=== PATIENT | female | born 1985 | race Caucasian/White ===

== ENCOUNTER 2019-04-04 09:08 | Day surgery (SDC) | payer MEDICAID ==
[2019-04-04] MEDS ORDERED: SOD CHLORIDE 0.9% 1,000 ML IV (10:00)
[2019-04-04] MEDS ORDERED: CEFAZOLIN 1 GM/50 ML (PMX) 50 ML IVPB (10:00)
[2019-04-04 11:28] LABS: ADD MAN DIFF? NO
[2019-04-04 11:32] LABS: BASOPHILS % 0.6 % (0.0-2.0); EOSINOPHILS # 0.1 10^3/ul (0.0-0.5); EOSINOPHILS % 0.9 % (0.0-7.0); HEMATOCRIT 35.1 % (37.0-47.0); HEMOGLOBIN 11.6 g/dl (12.0-16.0); LYMPHOCYTES # 1.5 10^3/ul (0.8-2.9); LYMPHOCYTES % 22.2 % (15.0-51.0); MEAN CORPUSCULAR HEMOGLOBIN 28.4 pg (29.0-33.0); MEAN PLATELET VOLUME 10.1 fl (7.4-10.4); MONOCYTE # 0.3 10^3/ul (0.3-0.9); MONOCYTES % 4.8 % (0.0-11.0); NEUTROPHIL # 4.9 10^3/ul (1.6-7.5); NEUTROPHILS % 71.2 % (39.0-77.0); PLATELET COUNT 285 10^3/UL (140-415); RED BLOOD COUNT 4.08 10^6/ul (4.20-5.40); RED CELL DISTRIBUTION WIDTH 13.8 % (11.5-14.5)
[2019-04-04 11:32] LABS: WHITE BLOOD COUNT 6.9 10^3/ul (4.8-10.8)
[2019-04-04 11:54] LABS: INR 1.11; PARTIAL THROMBOPLASTIN TIME 30.7 Sec (23.0-35.0); PROTIME 14.4 Sec (11.9-14.9); PT RATIO 1.1
[2019-04-04 12:05] LABS: ALANINE AMINOTRANSFERASE 33 IU/L (13-69); ALBUMIN 4.4 g/dl (3.3-4.9); ALBUMIN/GLOBULIN RATIO 1.15; ALKALINE PHOSPHATASE 107 IU/L (42-121); ANION GAP 9 (5-13); ASPARTATE AMINO TRANSFERASE 30 IU/L (15-46); BILIRUBIN,INDIRECT 0.3 mg/dl (0-1.1); BILIRUBIN,TOTAL 0.3 mg/dl (0.2-1.3); BLOOD UREA NITROGEN 13 mg/dl (7-20); CALCIUM 9.2 mg/dl (8.4-10.2); CARBON DIOXIDE 23 mmol/L (21-31); CHLORIDE 108 mmol/L (97-110); CREATININE 0.55 mg/dl (0.44-1.00); Estimated GFR > 60 mL/min (>60); GLUCOSE 101 mg/dl (70-220); SODIUM 140 mmol/L (135-144); TOTAL PROTEIN 8.2 g/dl (6.1-8.1)
[2019-04-04] MEDS ORDERED: FENTAnyl 50 MCG/ML VIAL (12:10)
[2019-04-04] MEDS ORDERED: CEFAZOLIN 1 GM INJ (12:24)
[2019-04-04] MEDS ORDERED: PROPOFOL 20 ML (12:29)
[2019-04-04] MEDS ORDERED: LIDOCAINE 2% (SDV) 5 ML INJ (12:29)
[2019-04-04] MEDS ORDERED: ONDANSETRON 4 MG INJ (12:29)
[2019-04-04] MEDS ORDERED: DEXAMETHASONE 4 MG/ML 5 ML INJ (12:29)
[2019-04-04] MEDS ORDERED: HYDROCODONE/APAP (7.5/325) TAB PO (13:00)
[2019-04-04] MEDS ORDERED: FENTAnyl 50 MCG/ML VIAL IV ×2 (13:30)
[2019-04-04] MEDS ORDERED: ONDANSETRON 4 MG INJ IV (13:30)
[2019-04-04] MEDS ORDERED: MEPERIDINE 25 MG INJ IV (13:30)
[2019-04-04] MEDS ORDERED: HYDROmorphONE 1 MG/5 ML IV SYRINGE IV ×2 (13:30)
[2019-04-04] MEDS ORDERED: OXYCODONE/ACETAMINOPHEN (5/325) TAB PO (13:30)
== END 2019-04-04 15:10 | disposition home or self-care (01) ==
LOC: SDS 09:08
DX: N63.0 Unspecified lump in unspecified breast (principal)
CPT/HCPCS: 19120; 80053; 85025; 85610; 85730